=== PATIENT | male | born 1960 | race Caucasian/White ===

== ENCOUNTER 2017-12-20 08:17 | Emergency (ER) | payer OTHER ==
[~2017-12-20] VITALS: Ht 180.3 cm; Wt 90.9 kg
[~2017-12-20 08:17] MED LIST: ASPIR-LOW81 MG PO; LOPRESSOR25 MG PO; NAPROXEN500 MG PO; RAMIPRIL2.5 MG PO; SERTRALINE HCL100 MG PO; ZOCOR20 MG PO
[2017-12-20 09:18] LABS: HEMATOCRIT 41.3 % (38.0-50.0); MCHC 36.3 G/DL (30.0-36.0); PLATELET COUNT 118 K/uL (156-360); RBC DIS.WIDTH-SD 43.2 % (39-53); RED BLOOD COUNT 4.54 M/uL (4.00-5.50); WHITE BLOOD COUNT 8.9 K/uL (4.1-10.2)
[2017-12-20 09:33] LABS: ALBUMIN 4.7 g/dL (3.2-4.8); CHLORIDE 104 mEq/L (99-109); POTASSIUM 4.6 mEq/L (3.7-5.4); SODIUM 141 mEq/L (136-147)
[2017-12-20 09:36] LABS: GLUCOSE 112 mg/dL (70-99)
[2017-12-20 09:37] LABS: TOTAL BILIRUBIN 0.8 mg/dL (0.0-1.0)
[2017-12-20 09:39] LABS: ALKALINE PHOSPHATASE 92 IU/L (3-129); CREATININE 0.9 mg/dL (0.6-1.3); GFR ESTIMATE (CALCULATED) > 59 mL/min/ (58.99-99999); SERUM ETHYL ALCOHOL < 10 mg/dL
[2017-12-20 09:40] LABS: UREA NITROGEN (BUN) 16 mg/dL (9-23)
[2017-12-20 09:43] LABS: ALT (GPT) 54 IU/L (3-49); AST (GOT) 66 IU/L (2-34)
[2017-12-20 10:52] LABS: COCAINE NEGATIVE (150 ng/mL); METHAMPHETAMINE NEGATIVE (500 ng/mL); PHENCYCLIDINE NEGATIVE (25 ng/mL); THC CANNABINOIDS NEGATIVE (50 ng/mL)
[2017-12-20 10:53] LABS: AMPHETAMINE NEGATIVE (500 ng/mL); BARBITURATES NEGATIVE (200 ng/mL); BENZODIAZEPINES PRESUMPTIVE POSITIVE (150 ng/mL); BUPRENORPHINE NEGATIVE (10 ng/mL); METHADONE NEGATIVE (200 ng/mL); OPIATES (MORPHINE) NEGATIVE (100 ng/mL); OXYCODONE NEGATIVE (100 ng/mL); PROPOXYPHENE NEGATIVE (300 ng/mL); TRICYCLIC ANTIDEPRESSANTS NEGATIVE (300 ng/mL)
[2017-12-20 11:08] LABS: APPEARANCE CLEAR ((CLEAR)); BILIRUBIN NEGATIVE; BLOOD NEGATIVE; COLOR YELLOW ((YELLOW)); GLUCOSE (STRIP) NEGATIVE; KETONES NEGATIVE; LEUKOCYTES NEGATIVE; NITRITE NEGATIVE; PROTEIN (STRIP) NEGATIVE; SPECIFIC GRAVITY 1.015 (1.000-1.030); UROBILINOGEN 0.2 MG/DL (0.2-1.0)
[2017-12-20] MEDS ORDERED: VALIUM10 MG PO (13:06)
[2017-12-20] MEDS ORDERED: B-1100 MG PO (13:06)
[2017-12-20] MEDS ORDERED: LIBRIUM25 MG PO (13:36)
[2017-12-20] MEDS ORDERED: ATIVAN0.5 MG PO (13:36)
[2017-12-20 13:43] VITALS: BP 135/113
[2017-12-20 14:21] LABS: BENZODIAZEPINES, URINE SCREEN POSITIVE (200 ng/mL)
== END 2017-12-20 13:46 | disposition home or self-care (01) ==
LOC: EME 08:17
PROVIDERS: Physician Assistant
DX: F10.20 Alcohol dependence, uncomplicated (principal); F32.9 Major depressive disorder, single episode, unspecified; R07.9 Chest pain, unspecified; F43.10 Post-traumatic stress disorder, unspecified; Y90.0 Blood alcohol level of less than 20 mg/100 ml; I10 Essential (primary) hypertension; F41.9 Anxiety disorder, unspecified; Z87.891 Personal history of nicotine dependence
CPT/HCPCS: 71046; 80053; 81003; 84999; 85027; 90839; 99281; 99284; G0480